=== PATIENT | male | born 1995 | race Two or more races ===

== ENCOUNTER 2017-07-19 13:42 | Emergency (ER) | payer SELFPAY ==
--- NOTE | 2017-07-19 14:05 | EDPHY ---
H & P Stated Complaint: skin redness Time Seen by Provider: 07/19/17 13:51 HPI/ROS: CHIEF COMPLAINT: Skin lesions times 1-2 months HISTORY OF PRESENT ILLNESS: 22-year-old male recently moved here from [place] complaining of intermittently pruritic, non painful, extensive skin lesions on his scalp, trunk, arms and legs, new medications including [id number] medication. He denies: Intraoral lesions, ocular complaints, genitalia lesions, GI complaints, male-male sexual activity, unprotected sexual activity, weight loss , night sweats, cough, URI symptoms, flu-like symptoms, fever, malaise, current or recent pharyngitis symptoms. PRIMARY CARE PROVIDER: None REVIEW OF SYSTEMS: A ten point review of systems was performed and is negative with the exception of the items mentioned in the HPI PAST MEDICAL & SURGICAL HISTORY: No pertinent medical or surgical history SOCIAL HISTORY:Nonsmoker recently moved here from [place] PHYSICAL EXAM (Prior to examination, patient consented to physical exam, hands were washed and my usual and customary physical exam procedures followed) 1) GENERAL: Well-developed, well-nourished, alert and oriented. Appears to be in no acute distress. 2) HEAD: Normocephalic, atraumatic 3) HEENT: Pupils equal, round, reactive to light bilaterally. Sclera anicteric. No injection Nasopharynx, oropharynx, clear, no lesions. Ears bilaterally with normal tympanic membranes. EAC clear no lesions. 4) NECK: Full range of motion, no meningeal signs. 5) LUNGS: Clear auscultation bilaterally, no wheezes, no rhonchi, no retractions. 6) HEART: Regular rate and rhythm, no murmur, no heave, no gallop. 7) ABDOMEN: No guarding, no rebound, no focal tenderness, negative McBurney's, negative Villalobos's, negative Rovsing's, negative peritoneal sign, 8) MUSCULOSKELETAL: Moving all extremities, no focal areas of tenderness, no obvious trauma. No peripheral edema or discoloration. 9) BACK: No CVA tenderness, no midline vertebral tenderness, no fluctuance, no step-off, no obvious trauma, no visual or palpable abnormality. 10) SKIN: The patient's scalp, trunk, arms come particularly on the extensor surfaces he has multiple well-demarcated, erythematous, scaly plaques 11) Psychiatric: Patient is oriented X 3, there is no agitation. 12) : Uncircumcised, no penile lesions, no scrotal lesions. DIFFERENTIAL DIAGNOSIS: In no particular order including but not limited psoriasis, cellulitis, infectious etiology such as syphilis - Personal History Current Tetanus/Diphtheria Vaccine: Yes Current Tetanus Diphtheria and Acellular Pertussis (TDAP): Yes - Medical/Surgical History Hx Asthma: No Hx Chronic Respiratory Disease: No Hx Diabetes: No Hx Cardiac Disease: No Hx Renal Disease: No Hx Cirrhosis: No Hx Alcoholism: No Hx HIV/AIDS: No Hx Splenectomy or Spleen Trauma: No Other PMH: denies - Social History Smoking Status: Never smoked Constitutional: Initial Vital Signs Temperature (C) 36.9 C 07/19/17 13:46 Heart Rate 82 07/19/17 13:46 Respiratory Rate 16 07/19/17 13:46 Blood Pressure 133/66 H 07/19/17 13:46 O2 Sat (%) 95 07/19/17 13:46 O2 Delivery Mode Room Air Allergies/Adverse Reactions: No Known Allergies Allergy (Unverified 07/19/17 13:46) Home Medications: Medication Instructions Recorded NK [No Known Home Meds] 07/19/17 Medical Decision Making ED Course/Re-evaluation: 2:02 p.m.: I think this patient's skin lesions are more likely secondary to psoriasis. He has no signs of super infection, no signs cellulitis, no signs of abscess, no signs of zoster. Doubt syphilis. Doubt pustular psoriasis in the absence of malaise, fever, flu-like symptoms. Doubt strep etiology in the absence of recent or current pharyngitis symptoms. Doubt Maguire-Jose C. Given the extent of this patient's symptoms I have recommended close follow-up with dermatology and provided these resources. He feels comfortable being discharged. Care of patient under supervision of secondary supervising physician Dr Wilhelm . Departure - Departure Disposition: Home, Routine, Self-Care Clinical Impression: Psoriasis Condition: Good Instructions: Psoriasis (ED) Additional Instructions: Return to the ER if develop new or worsening symptoms, if you develop lesions to your genitals, in your mouth, if you develop fevers, flu-like symptoms, or any other symptoms that concern you. Referrals: [facility],. [Clinic] - 2-3 days, call for appt. Print Language: [place]
[2017-07-19 22:10] VITALS: BP 132/87
== END 2017-07-19 14:44 | disposition home or self-care (01) ==
DX: L40.9 Psoriasis, unspecified (principal)